=== PATIENT | female | born 1980 | race Caucasian/White ===

== ENCOUNTER → 2016-05-05 | Outpatient (CLI) | payer SELFPAY ==
[2016-05-05 17:38] LABS: Basophils % (A) 0 %; CH 32.4; CHCM 34.3; Eosinophils # (A) 0.1 k/uL (0-0.7); Eosinophils % (A) 1 %; HCT 39.7 % (34.0-46.0); HGB 13.7 gm/dL (11.4-16.0); Luc % (Auto) 1; Lymphocytes # (A) 2.5 k/uL (1.0-4.8); Lymphocytes % (A) 31 %; MCH 32.8 pg (25.0-35.0); MCHC 34.5 g/dL (31.0-37.0); MCV 94.9 fL (80.0-100.0); Mean Platelet Volume 8.1; Monocytes # (A) 0.3 k/uL (0-1.0); Monocytes % (A) 4 %; Neutrophils # (A) 4.9 k/uL (1.3-7.7); Neutrophils % (A) 62 %; RBC 4.19 m/uL (3.80-5.40); RDW 12.4 % (11.5-15.5); WBC 7.9 k/uL (3.8-10.6); WBC (Perox) 8.44
== END | disposition home or self-care (01) ==
LOC: LABPAT 17:00
PROVIDERS: ATTEND Orthopaedic Surgery
DX: Z01.812 Encounter for preprocedural laboratory examination (principal)
CPT/HCPCS: 36415; 85025

== ENCOUNTER 2016-05-08 06:03 | Day surgery (SDC) | payer OTHER ==
[2016-05-05 14:54] VITALS: BMI 20.3
--- NOTE | 2016-05-07 16:27 | HP ---
DATE OF ADMISSION: Jenn Tello is a 35-year-old patient seen with progressive right shoulder pain, failing conservative treatment measures. After having treatment options discussed, she elected to proceed with right shoulder arthroscopy. Consent was obtained. Past medical history is noncontributory. PAST SURGICAL HISTORY: section x2. DAILY MEDICATIONS: Ibuprofen. ALLERGIES: None. SOCIAL HISTORY: Patient denies current tobacco use. PHYSICAL EVALUATION OF RIGHT SHOULDER: Flexion 170 degrees, abduction was 160 degrees, external rotation 70 degrees with some weakness and pain. Tenderness along the anterolateral acromion rotator cuff insertion. Impingement +90 degrees, distal neurovascular exam is intact. Radiographs of the right shoulder revealed a type II anterior acromion. An MRI of the right shoulder revealed increased signal within the supraspinatus. IMPRESSION: Right shoulder impingement with possible rotator cuff tear. PLAN: Right shoulder arthroscopy with subacromial decompression, possible arthroscopic rotator cuff repair, and debridement.
[~2016-05-08 06:03] MED LIST: DEXAMETHASONE SOD PHOSPHATE 10 MG/ML 1 ML VIAL IV ONE; HYDROmorphone 1 MG/ML 1 ML SYRINGE IVP PRN; LACTATED RINGERS 1,000 ML IV SCH; LIDOCAINE 1% 20 ML VIAL (10MG/ML) FOR IV START INTRADERMA PRN; MIDAZOLAM 2 MG/2 ML VIAL IV PRN; ONDANSETRON 4 MG/2 ML VIAL IVP ONE; SCOPOLAMINE 1.5MG/72HR PATCH TRANSDERM ONE; ceFAZolin 1,000 MG in DEXTROSE/WATER 1 50ML.BAG IVPB ONE
[2016-05-08 06:24] VITALS: RESP 16; TEMP 96.8
[2016-05-08] MEDS ORDERED: fentaNYL (PF) 50 MCG/ML 2 ML AMP IV ONE (07:04)
[2016-05-08] MEDS ORDERED: SUCCINYLCHOLINE CHLORIDE 100 MG/5 ML SYR IV ONE (07:23)
[2016-05-08] MEDS ORDERED: LIDOCAINE 2%-EPI 1:100,000 20 ML VIAL ONE (07:23)
[2016-05-08] MEDS ORDERED: LIDOCAINE 1% INJ 10MG/ML (20 ML MDV) ONE (07:23)
[2016-05-08] MEDS ORDERED: PROPOFOL 10 MG/ML 20 ML VIAL IV ONE (07:23)
[2016-05-08] MEDS ORDERED: fentaNYL (PF) 50 MCG/ML 2 ML AMP ONE (07:23)
[2016-05-08] MEDS ORDERED: ROPIVACAINE 5 MG/ML 30 ML VIAL ONE (07:23)
--- NOTE | 2016-05-08 07:33 | P.ONQ ---
Anesthesiology Proc Note - PNB - Peripheral Nerve Block Performed Right Interscalene Single Time Out Performed: Yes Indication: Acute Post-Operative Pain, Analgesia Specifically requested for management of pain by DrMi: Kenneth Reyes Sedation Type: Sedate with meaningful contact maintained Preparation: Sterile Prep Position: Supine Catheter: None Needle Types: Other (see comment) (stimuplex) Needle Size: 50mm (2") Needle Gauge: Other (see comment) (22) Technique: Ultrasound Injectate: Other (see comment) (10 cc 2% lidocaine + 10 cc 0.5% ropivicaine) Adjunct: Epinephrine (see comment for dilution ratio) (1:200,000) Blood Aspirated: No Pain Paresthesia on Injection Noted: No Resistance on Injection: Normal Events: Uneventful and Well Tolerated
[2016-05-08] MEDS ORDERED: LACTATED RINGERS 1,000 ML IV ONE (08:52)
--- NOTE | 2016-05-08 09:05 | P.OP ---
Date of Procedure: 05/08/16 Preoperative Diagnosis: Right shoulder impingement Postoperative Diagnosis: 1. Right shoulder superficial rotator cuff tear 2. Right shoulder impingement 3. Right shoulder partial long head biceps tendon tear 4. Right shoulder superficial labral tear Procedure(s) Performed: 1. Right shoulder arthroscopic debridement superficial rotator cuff tear 2. Right shoulder arthroscopic subacromial decompression 3. Right shoulder arthroscopic biceps tenotomy 4. Right shoulder arthroscopic debridement superficial labral tear Anesthesia: GETA, regional (Interscalene block) Surgeon: Kenneth Reyes Playground Aide #1: Mao Melchor Estimated Blood Loss (ml): 10 Pathology: none sent Condition: stable Disposition: PACU Indications for Procedure: 35-year-old patient seen with progressive right shoulder pain. After and options were discussed, she elected to proceed with right shoulder arthroscopy. Operative Findings: See description of procedure Description of Procedure: Patient underwent a shoulder block by department of anesthesia. The patient was then taken to the operative suite. The patient underwent a general anesthetic by the department of anesthesia. The patient was placed into a lateral position and secured. There was appropriate padding of the bony prominence. Right shoulder was then prepped and draped in normal sterile orthopedic fashion. We placed the extremity in 10 pounds of longitudinal traction. A posterior incision was now made for a posterior working portal site. The trocar and cannula were inserted into the glenohumeral joint. Arthroscopy was initiated. Spinal needle was now inserted anteriorly, to ascertain the anterior working portal site. An incision was now made in that area, a trocar was inserted followed by a probe. There was some partial tearing of the long head biceps tendon along with some hyperemia. There was superficial tearing of the superior labrum. The anterior, posterior and inferior labrum were probed and found to be intact and stable. There was no chondromalacia. I performed an arthroscopic biceps tenotomy. I debrided the labral tear down to stable tissue. The residual labrum was probed and found to be stable. Instruments were now removed from glenohumeral joint. Utilizing the posterior working portal site, the trocar and cannula were inserted into the subacromial space. Arthroscopy initiated. I made an incision 2 fingerbreadths lateral to the acromion. I introduced my trocar followed by my [employer] ablator. I now began ablating thick subacromial bursal tissue, which exposed the undersurface of the anterior acromion. This was diminished subacromial space. There was a very prominent anterior acromion. I now began probing the area and noted there was a bipartite acromion in the central portion. I went ahead and performed a subacromial decompression. I reevaluated the bipartite acromion. At this point I could not really debrided out one of the portions of the without compromising the deltoid insertion. There was adequate decompression performed at this point. I now evaluated the acromion vertically joint. I did excise a small prominence inferiorly with a motorized bur. The before meals joint appeared stable with no significant osteoarthritis. I now turned my attention to the distal rotator cuff tendon. There was some superficial fraying. I debrided that with a motorized shaver. This was very mild and the residual tissue was stable. I now injected 1 mL of Allogen into the debrided rotator cuff tendon area. Instruments now removed from the portal sites. All portal sites were approximated with nylon suture. Sterile dressings were applied followed by a shoulder immobilizer. Warner CASTANON assisted with the procedure. The patient was awakened, transferred to a bed, and taken to recovery in stable condition.
[2016-05-08] MEDS: MEPERIDINE 50 MG/ML SYRINGE IVP ONE ×2 (09:08→09:28)
[2016-05-08] MEDS ORDERED: HYDROcodone/APAP 5-325MG 1 EACH TAB PO ONE (10:14)
[2016-05-08 10:39] VITALS: BP 100/59; PULSE 65
== END 2016-05-08 11:18 | disposition home or self-care (01) ==
LOC: OR 06:03
PROVIDERS: ATTEND Orthopaedic Surgery
DX: M75.101 Unspecified rotator cuff tear or rupture of right shoulder, not specified as traumatic (principal); M75.41 Impingement syndrome of right shoulder; S46.111A Strain of muscle, fascia and tendon of long head of biceps, right arm, initial encounter; S43.401A Unspecified sprain of right shoulder joint, initial encounter; X58.XXXA Exposure to other specified factors, initial encounter; Z72.0 Tobacco use
CPT/HCPCS: 64415; 81025; 29826; 29827; C1765; J2250; J1100; J2175; J2405; J2001; J3010; J0690; J2795; J0330; J2704